=== PATIENT | male | born 1940 | race Caucasian/White ===

== ENCOUNTER 2016-11-05 09:45 | Observation (INO) | payer MEDICARE ==
[~2016-11-05] VITALS: Ht 172.7 cm; Wt 78.0 kg
[2016-11-05 10:29] LABS: HEMOGLOBIN 13.4 g/dL (13.7-18.0)
[2016-11-05 10:40] LABS: ASPARTATE AMINO TRANSFERASE 21 U/L (15-37); BLOOD UREA NITROGEN 8 mg/dL (7-18)
[2016-11-05 10:43] LABS: ACETAMINOPHEN < 2 mcg/mL (10-30)
[2016-11-05 11:10] LABS: DAU SCREEN DISCLAIMER
[2016-11-05] MEDS ORDERED: ONDANSETRON ODT 4 MG PO PRN (15:00)
[2016-11-05] MEDS ORDERED: ACETAMINOPHEN 325 MG TABLET PO PRN (15:00)
[2016-11-05] MEDS ORDERED: DOCUSATE 100 MG CAPSULE PO PRN (15:00)
[2016-11-05] MEDS: INSULIN REGULAR 100 UNITS/ML, 3ML VIAL SQ-INSULIN SCH ×2 (16:00→21:33)
[2016-11-05 16:15] VITALS: BP 149/77
[2016-11-05] MEDS: NICOTINE 7 MG/24 HR PATCH.TD24 TD SCH (17:10)
[2016-11-05] MEDS: POTASSIUM CHLORIDE 20 MEQ TAB.ER.PRT PO SCH (17:10)
[2016-11-05] MEDS: ENOXAPARIN 40 MG/0.4 ML SQ SCH (17:10)
[2016-11-05] MEDS ORDERED: GLUCAGON 1 MG IM PRN (19:30)
[2016-11-05] MEDS ORDERED: DEXTROSE 4 GM TAB.CHEW PO PRN (19:30)
[2016-11-05] MEDS ORDERED: DEXTROSE 50%, 50ML SYRINGE IVPush PRN (19:30)
[2016-11-05 19:49] VITALS: BP 102/63
[2016-11-05] MEDS ORDERED: LORazepam 1MG TABLET PO PRN (21:00)
[2016-11-05] MEDS ORDERED: SODIUM CHLORIDE FLUSH 10ML SYR IVF SCH (21:00)
[2016-11-05] MEDS: CITALOPRAM 20 MG TABLET PO SCH (21:27)
[2016-11-05] MEDS: CEFDINIR 300 MG CAPSULE PO SCH (21:27)
[2016-11-05] MEDS: RISPERIDONE 0.5 MG TABLET PO SCH (21:28)
[2016-11-06] MEDS: GUAIFENESIN/DM 200-20MG, 10ML UDC PO PRN ×2 (03:17→19:41)
[2016-11-06 04:52] LABS: HEMOGLOBIN 11.9 g/dL (13.7-18.0)
[2016-11-06 04:53] LABS: BLOOD UREA NITROGEN 13 mg/dL (7-18)
[2016-11-06 07:20] VITALS: BP 111/68
[2016-11-06] MEDS: INSULIN REGULAR 100 UNITS/ML, 3ML VIAL SQ-INSULIN SCH ×4 (07:30→21:00)
[2016-11-06] MEDS: NICOTINE 7 MG/24 HR PATCH.TD24 TD SCH (09:04)
[2016-11-06] MEDS: AZITHROMYCIN 500 MG TABLET PO SCH (09:04)
[2016-11-06] MEDS: POTASSIUM CHLORIDE 20 MEQ TAB.ER.PRT PO SCH (09:04)
[2016-11-06] MEDS: CEFDINIR 300 MG CAPSULE PO SCH ×2 (09:04→21:54)
[2016-11-06] MEDS: ENOXAPARIN 40 MG/0.4 ML SQ SCH (15:00)
[2016-11-06 19:20] VITALS: BP 102/52
[2016-11-06] MEDS: CITALOPRAM 20 MG TABLET PO SCH (21:54)
[2016-11-06] MEDS: RISPERIDONE 0.5 MG TABLET PO SCH (21:55)
[2016-11-07 08:05] VITALS: BP 109/65
[2016-11-07] MEDS: INSULIN REGULAR 100 UNITS/ML, 3ML VIAL SQ-INSULIN SCH ×4 (08:49→21:34)
[2016-11-07] MEDS: CEFDINIR 300 MG CAPSULE PO SCH ×2 (09:11→21:40)
[2016-11-07] MEDS: AZITHROMYCIN 500 MG TABLET PO SCH (09:11)
[2016-11-07] MEDS: NICOTINE 7 MG/24 HR PATCH.TD24 TD SCH (15:54)
[2016-11-07] MEDS: ENOXAPARIN 40 MG/0.4 ML SQ SCH (15:54)
[2016-11-07 20:00] VITALS: BP 104/65
[2016-11-07] MEDS ORDERED: LORazepam 1MG TABLET PO PRN (20:04)
[2016-11-07] MEDS: CITALOPRAM 20 MG TABLET PO SCH (21:40)
[2016-11-07] MEDS: RISPERIDONE 0.5 MG TABLET PO SCH (21:40)
[2016-11-08] MEDS: INSULIN REGULAR 100 UNITS/ML, 3ML VIAL SQ-INSULIN SCH ×4 (07:00→21:41)
[2016-11-08] MEDS: AZITHROMYCIN 500 MG TABLET PO SCH (07:51)
[2016-11-08] MEDS: CEFDINIR 300 MG CAPSULE PO SCH ×2 (07:51→20:02)
[2016-11-08 08:29] VITALS: BP 108/61
[2016-11-08] MEDS: ENOXAPARIN 40 MG/0.4 ML SQ SCH (15:00)
[2016-11-08] MEDS: NICOTINE 7 MG/24 HR PATCH.TD24 TD SCH (15:00)
[2016-11-08 19:45] VITALS: BP 107/68
[2016-11-08] MEDS: RISPERIDONE 0.5 MG TABLET PO SCH (20:02)
[2016-11-08] MEDS: CITALOPRAM 20 MG TABLET PO SCH (20:02)
[2016-11-09] MEDS: INSULIN REGULAR 100 UNITS/ML, 3ML VIAL SQ-INSULIN SCH ×4 (07:00→21:00)
[2016-11-09] MEDS: CEFDINIR 300 MG CAPSULE PO SCH ×2 (07:33→21:53)
[2016-11-09] MEDS: AZITHROMYCIN 500 MG TABLET PO SCH (07:33)
[2016-11-09 08:02] VITALS: BP 116/65
[2016-11-09] MEDS: NICOTINE 7 MG/24 HR PATCH.TD24 TD SCH (15:00)
[2016-11-09] MEDS: ENOXAPARIN 40 MG/0.4 ML SQ SCH (15:00)
[2016-11-09 19:40] VITALS: BP 112/60
[2016-11-09] MEDS: RISPERIDONE 0.5 MG TABLET PO SCH (21:00)
[2016-11-09] MEDS: CITALOPRAM 20 MG TABLET PO SCH (21:53)
[2016-11-10] MEDS: INSULIN REGULAR 100 UNITS/ML, 3ML VIAL SQ-INSULIN SCH ×4 (07:00→21:00)
[2016-11-10 07:45] VITALS: BP 125/59
[2016-11-10] MEDS: AZITHROMYCIN 500 MG TABLET PO SCH (08:19)
[2016-11-10] MEDS: CEFDINIR 300 MG CAPSULE PO SCH (08:19)
[2016-11-10] MEDS: NICOTINE 7 MG/24 HR PATCH.TD24 TD SCH (15:00)
[2016-11-10] MEDS: ENOXAPARIN 40 MG/0.4 ML SQ SCH (15:00)
[2016-11-10 19:31] VITALS: BP 106/64
[2016-11-10] MEDS: CITALOPRAM 20 MG TABLET PO SCH (21:37)
[2016-11-10] MEDS: RISPERIDONE 0.5 MG TABLET PO SCH (21:37)
[2016-11-11] MEDS: INSULIN REGULAR 100 UNITS/ML, 3ML VIAL SQ-INSULIN SCH ×4 (07:00→21:21)
[2016-11-11 07:48] VITALS: BP 115/71
[2016-11-11] MEDS: ENOXAPARIN 40 MG/0.4 ML SQ SCH (15:34)
[2016-11-11] MEDS: NICOTINE 7 MG/24 HR PATCH.TD24 TD SCH (15:35)
[2016-11-11 19:36] VITALS: BP 105/58
[2016-11-11] MEDS: RISPERIDONE 0.5 MG TABLET PO SCH (21:20)
[2016-11-11] MEDS: CITALOPRAM 20 MG TABLET PO SCH (21:20)
[2016-11-12] MEDS: INSULIN REGULAR 100 UNITS/ML, 3ML VIAL SQ-INSULIN SCH ×4 (07:19→20:59)
[2016-11-12 07:24] VITALS: BP 129/74
[2016-11-12] MEDS: NICOTINE 7 MG/24 HR PATCH.TD24 TD SCH (17:11)
[2016-11-12] MEDS: ENOXAPARIN 40 MG/0.4 ML SQ SCH (17:12)
[2016-11-12 19:24] VITALS: BP 114/67
[2016-11-12] MEDS: CITALOPRAM 20 MG TABLET PO SCH (20:56)
[2016-11-12] MEDS: RISPERIDONE 0.5 MG TABLET PO SCH (20:57)
[2016-11-13] MEDS: INSULIN REGULAR 100 UNITS/ML, 3ML VIAL SQ-INSULIN SCH ×3 (07:00→16:02)
[2016-11-13 08:04] VITALS: BP 121/66
[2016-11-13] MEDS: NICOTINE 7 MG/24 HR PATCH.TD24 TD SCH (16:01)
[2016-11-13] MEDS: ENOXAPARIN 40 MG/0.4 ML SQ SCH (16:02)
[2016-11-13] MEDS ORDERED: CITA20TA9 PO (17:13)
[2016-11-13] MEDS ORDERED: RISP0.5T18 PO (17:13)
[2016-11-13] MEDS ORDERED: METF500T PO (17:29)
== END 2016-11-13 18:55 | disposition home or self-care (01) ==
LOC: ED 13:16 → EDIP 13:17 → ED 13:43 → 3E 16:12
PROVIDERS: ADMIT Internal Medicine; ATTEND Internal Medicine
DX: R45.851 Suicidal ideations (principal); F32.9 Major depressive disorder, single episode, unspecified; D72.829 Elevated white blood cell count, unspecified; J45.909 Unspecified asthma, uncomplicated; E87.6 Hypokalemia; D53.9 Nutritional anemia, unspecified; E44.1 Mild protein-calorie malnutrition; E11.65 Type 2 diabetes mellitus with hyperglycemia; F17.200 Nicotine dependence, unspecified, uncomplicated; M19.90 Unspecified osteoarthritis, unspecified site; F12.90 Cannabis use, unspecified, uncomplicated; J14 Pneumonia due to Hemophilus influenzae; Z91.19 Patient's noncompliance with other medical treatment and regimen; Z59.0 Homelessness
CPT/HCPCS: 36415; 71020; 80048; 80053; 80307; 80329; 82607; 82746; 82962; 83735; 84100; 84443; 85025; 87040; 87070; 87205; 96372; 99285; G0378; J1650; J1815; G0480

== ENCOUNTER 2016-12-17 20:47 | Inpatient (IN) | payer MEDICARE ==
[~2016-12-17] VITALS: Ht 162.6 cm; Wt 68.3 kg
[~2016-12-17 20:47] MED LIST: CITA20TA9 PO; METF500T PO; RISP0.5T18 PO
[2016-12-17 21:53] LABS: ASPARTATE AMINO TRANSFERASE 20 U/L (15-37); BLOOD UREA NITROGEN 16 mg/dL (7-18)
[2016-12-17 21:59] LABS: ACETAMINOPHEN < 2 mcg/mL (10-30); IS PT STATUS REG ER OR PRE ER? YES
[2016-12-18] MEDS ORDERED: DOCUSATE 100 MG CAPSULE PO PRN (04:30)
[2016-12-18] MEDS ORDERED: ONDANSETRON ODT 4 MG PO PRN (04:30)
[2016-12-18] MEDS ORDERED: BISACODYL 10 MG SUPP PR PRN (04:30)
[2016-12-18] MEDS ORDERED: ACETAMINOPHEN 325 MG TABLET PO PRN (04:30)
[2016-12-18] MEDS ORDERED: POLYETHYLENE GLYCOL 17 GM PACKET PO PRN (04:30)
[2016-12-18] MEDS ORDERED: ALBUTEROL/IPRATROPIUM 2.5MG/0.5MG, 3 ML HHN PRN (05:00)
[2016-12-18 05:19] LABS: DAU SCREEN DISCLAIMER
[2016-12-18 05:37] VITALS: BP 147/67
[2016-12-18] MEDS: NICOTINE 14MG/24 HR PATCH.TD24 TD SCH (05:46)
[2016-12-18] MEDS: INSULIN REGULAR 100 UNITS/ML, 3ML VIAL SQ-INSULIN SCH ×4 (07:00→21:00)
[2016-12-18 07:38] VITALS: BP 145/75
[2016-12-18] MEDS ORDERED: LORazepam 1MG TABLET PO PRN (12:00)
[2016-12-18] MEDS: THIAMINE 100MG TABLET PO SCH (12:03)
[2016-12-18] MEDS: CYANOCOBALAMIN 1,000 MCG TABLET PO SCH (12:03)
[2016-12-18] MEDS: FOLIC ACID 1 MG TABLET PO SCH (12:03)
[2016-12-18 20:00] VITALS: BP 145/78
[2016-12-19 05:36] LABS: BLOOD UREA NITROGEN 15 mg/dL (7-18)
[2016-12-19] MEDS: INSULIN REGULAR 100 UNITS/ML, 3ML VIAL SQ-INSULIN SCH ×4 (07:20→21:00)
[2016-12-19 07:40] VITALS: BP 114/66
[2016-12-19] MEDS: CYANOCOBALAMIN 1,000 MCG TABLET PO SCH (08:08)
[2016-12-19] MEDS: THIAMINE 100MG TABLET PO SCH (08:08)
[2016-12-19] MEDS: FOLIC ACID 1 MG TABLET PO SCH (08:08)
[2016-12-19] MEDS: NICOTINE 14MG/24 HR PATCH.TD24 TD SCH (08:13)
[2016-12-19] MEDS ORDERED: LORazepam 0.5MG TABLET PO PRN (11:30)
[2016-12-19] MEDS ORDERED: LORazepam 1MG TABLET PO PRN ×4 (11:30)
[2016-12-19] MEDS ORDERED: LORazepam 2 MG/ML, 1ML IV PRN ×5 (11:30)
[2016-12-19 12:14] VITALS: BP 136/71
[2016-12-19] MEDS: POTASSIUM CHLORIDE 20 MEQ, MAGNESIUM SULFATE 1 GM, FOLIC ACID 1 MG, THIAMINE 100 MG, MV... IV SCH (14:26)
[2016-12-19 22:17] VITALS: BP 114/60
[2016-12-20 02:32] VITALS: BP 119/62
[2016-12-20 06:49] LABS: ASPARTATE AMINO TRANSFERASE 27 U/L (15-37); BLOOD UREA NITROGEN 14 mg/dL (7-18)
[2016-12-20 06:55] VITALS: BP 131/69
[2016-12-20] MEDS: NICOTINE 14MG/24 HR PATCH.TD24 TD SCH (09:08)
[2016-12-20] MEDS: THIAMINE 100MG TABLET PO SCH (09:08)
[2016-12-20] MEDS: FOLIC ACID 1 MG TABLET PO SCH (09:08)
[2016-12-20] MEDS: CYANOCOBALAMIN 1,000 MCG TABLET PO SCH (09:08)
[2016-12-20] MEDS: ENOXAPARIN 40 MG/0.4 ML SQ SCH (09:08)
[2016-12-20] MEDS: INSULIN REGULAR 100 UNITS/ML, 3ML VIAL SQ-INSULIN SCH ×4 (09:10→21:00)
[2016-12-20] MEDS: POTASSIUM CHLORIDE 20 MEQ, MAGNESIUM SULFATE 1 GM, FOLIC ACID 1 MG, THIAMINE 100 MG, MV... IV SCH (12:21)
[2016-12-20 14:23] VITALS: BP 112/63
[2016-12-20 19:38] VITALS: BP 112/66
[2016-12-21 02:48] VITALS: BP 114/64
[2016-12-21 06:46] VITALS: BP 116/69
[2016-12-21] MEDS: INSULIN REGULAR 100 UNITS/ML, 3ML VIAL SQ-INSULIN SCH ×4 (07:00→21:00)
[2016-12-21] MEDS: THIAMINE 100MG TABLET PO SCH (08:48)
[2016-12-21] MEDS: CYANOCOBALAMIN 1,000 MCG TABLET PO SCH (08:48)
[2016-12-21] MEDS: FOLIC ACID 1 MG TABLET PO SCH (08:48)
[2016-12-21] MEDS: ENOXAPARIN 40 MG/0.4 ML SQ SCH (08:48)
[2016-12-21] MEDS: NICOTINE 14MG/24 HR PATCH.TD24 TD SCH (08:48)
[2016-12-21] MEDS: POTASSIUM CHLORIDE 20 MEQ, MAGNESIUM SULFATE 1 GM, FOLIC ACID 1 MG, THIAMINE 100 MG, MV... IV SCH (12:25)
[2016-12-21 12:57] VITALS: BP 118/71
[2016-12-21 15:16] VITALS: BP 114/61
[2016-12-21 20:25] VITALS: BP 124/61
[2016-12-22 07:30] VITALS: BP 108/68
[2016-12-22] MEDS: INSULIN REGULAR 100 UNITS/ML, 3ML VIAL SQ-INSULIN SCH ×2 (07:50→12:07)
[2016-12-22] MEDS: ENOXAPARIN 40 MG/0.4 ML SQ SCH (08:00)
[2016-12-22] MEDS: CYANOCOBALAMIN 1,000 MCG TABLET PO SCH (08:31)
[2016-12-22] MEDS: THIAMINE 100MG TABLET PO SCH (08:31)
[2016-12-22] MEDS: FOLIC ACID 1 MG TABLET PO SCH (08:31)
[2016-12-22] MEDS: NICOTINE 14MG/24 HR PATCH.TD24 TD SCH (08:32)
[2016-12-22] MEDS: POTASSIUM CHLORIDE 20 MEQ, MAGNESIUM SULFATE 1 GM, FOLIC ACID 1 MG, THIAMINE 100 MG, MV... IV SCH (12:07)
== END 2016-12-22 14:22 | DRG 895 ==
LOC: ED 12-18 03:14 → OBSVTOIN 12-18 03:15 → EDIP 12-18 03:15 → ED 12-18 03:22 → 3E 12-18 05:30 → 3NE 12-19 12:01 → 3E 12-21 14:52
PROVIDERS: ADMIT Internal Medicine; ATTEND Internal Medicine
PROC: HZ34ZZZ Individual Counseling for Substance Abuse Treatment, Interpersonal (ICD-10-PCS; principal; 2016-12-18)
PROC: HZ2ZZZZ Detoxification Services for Substance Abuse Treatment (ICD-10-PCS; 2016-12-18)
DX: F10.239 Alcohol dependence with withdrawal, unspecified (principal); R45.851 Suicidal ideations; E44.1 Mild protein-calorie malnutrition; F32.9 Major depressive disorder, single episode, unspecified; D64.9 Anemia, unspecified; E11.9 Type 2 diabetes mellitus without complications; Y90.9 Presence of alcohol in blood, level not specified; F17.210 Nicotine dependence, cigarettes, uncomplicated; J45.909 Unspecified asthma, uncomplicated; M19.90 Unspecified osteoarthritis, unspecified site; R45.1 Restlessness and agitation; Z59.0 Homelessness; Z91.14 Patient's other noncompliance with medication regimen; Z71.6 Tobacco abuse counseling; Z68.25 Body mass index [BMI] 25.0-25.9, adult; F10.229 Alcohol dependence with intoxication, unspecified; Z71.51 Drug abuse counseling and surveillance of drug abuser; Z71.41 Alcohol abuse counseling and surveillance of alcoholic; F12.10 Cannabis abuse, uncomplicated; R07.1 Chest pain on breathing
CPT/HCPCS: 36415; 71010; 80048; 80053; 80307; 80329; 81003; 82040; 82962; 83036; 83735; 84100; 84484; 85025; 93005; J1650; J1815; J3411; J3475; J3480; J7042; G0378; G0480; J2060